=== PATIENT | male | born 1990 | race Caucasian/White ===

== ENCOUNTER 2016-11-25 13:18 | Emergency (ER) ==
[2016-11-25] MEDS ORDERED: NORCO-7.5 PO ONE (14:07)
--- NOTE | 2016-11-25 14:16 | PROVIDER DOCUMENTATION ---
HPI-Musculoskeletal Pain/Inj - GENERAL Source: patient - HX OF PRESENT ILLNESS-MUSKULOSKELTAL Quality of Pain: reports: aching Severity in ED: moderate Onset/Duration: just prior to arrival, other (Multiple falls resulting in L shoulder pain in last 1 month time period) Timing: still present Modifying Factors: worse with: movement Any recent injury?: Yes (dislocation) Locality of Occurance: Home Similar Symptoms Previously?: Yes (11/02/16 at [facility]; last week [facility]) Recently seen or treated by another doctor?: Yes ([facility]) - FALL INJURY Location of Pain/Injury: reports: upper extremity (L shoulder) Pain Radiation: reports: arm(s) Reason for Fall: reports: other (seizure) Loss of Consciousness: no loss of consciousness Injury Associated Symptoms: reports: arm pain - UPPER EXTREMITY PAIN/INJURY Extremities Pain Location: shoulder: left Context / Method of Injury: reports: fell Associated Symptoms: reports: denies symptoms <Kraen Mendieta - Last Filed: 11/25/16 14:35> <Laurel Tan - Last Filed: 11/25/16 14:42> - GENERAL Chief Complaint: Shoulder Pain Stated Complaint: shoulder pain Time Seen by Provider: 11/25/16 14:01 - HX OF PRESENT ILLNESS-MUSKULOSKELTAL Nature of Presenting Problem: 26 yo M with hx of seizures presents to ED with cc of L shoulder pain following a fall this morning in which he hit his shoulder. Pt's L shoulder was dislocated due to seizure last week. Pt was treated for dislocation at [facility], where he was given toradol for pain relief. Pt states the toradol is not working. Pt was treated in [place] ED 11/02/16 for L shoulder pain from a to a fall due to seizure. At that time, pt's x-ray indicated no acute disease. Upon arrival to ED pt is in no apparent distress. (Karen Mendieta) Review of Systems - Adult - REVIEW OF SYSTEMS - ADULT Constitutional: reports: no symptoms reported. denies: chills, fever Eyes: reports: no symptoms reported. denies: discharge, dry eyes Ears, Nose, Mouth & Throat: reports: no symptoms reported. denies: ear pain, nose pain Cardiovascular: reports: no symptoms reported. denies: chest pain, edema Respiratory: reports: no symptoms reported. denies: cough, dyspnea on exertion Gastrointestinal: reports: no symptoms reported. denies: abdominal pain, nausea Genitourinary: reports: no symptoms reported. denies: dysuria, discharge Musculoskeletal: reports: joint pain (L shoulder) Integumentary: reports: no symptoms reported. denies: hives, itching Neurological: reports: no symptoms reported. denies: ataxia, dizziness/vertigo Psychiatric: reports: no symptoms reported. denies: anxiety, alcohol/drug dependence Endocrine: reports: no symptoms reported. denies: change in skin pigment, cold intolerance Hematologic/Lymphatic: reports: no symptoms reported. denies: blood clots, easy bruising Allergic/Immunologic: reports: no symptoms reported. denies: allergic reactions , allergic rhinitis All Other Systems: Reviewed and Negative <Karen Mendieta - Last Filed: 11/25/16 14:35> Past History - Adult - PAST MEDICAL HISTORY-ADULT Review of Records: reports: Old Records Reviewed, Nursing Assessment Review, Medications Reviewed Major Childhood Illnesses: reports: denies history Genitourinary: reports: kidney stones Neurological: reports: Seizures/Epilepsy Psychiatric: reports: anxiety, depression, other (OD) Endocrine/Immune: reports: hypoglycemia Other Conditions: reports: other (hypoglycemia) - PRIOR SURGERIES/PROCEDURES Surgical/Procedure History: reports: reviewed, not pertinent, orthopedic ( extremity) - PRIOR HOSPITALIZATIONS Prior Hospitalizations: reports: none - IMMUNIZATION STATUS Childhood Immunizations: See Nurse Assessment Flu Vaccine: See Nurse Assessment - FAMILY HISTORY Family History: reviewed, not pertinent <Karen Mendieta - Last Filed: 11/25/16 14:35> Physical Exam-Injury Related - Physical Exam-Injury Related Initial Vital Signs Reviewed: Yes General Appearance: appears well, alert, no apparent distress Eyes: PERRL/EOMI, pink conjunctivae Head, Ears, Nose, Mouth & Throat: normocephalic/atraumatic, moist mucous membranes, normal ENT inspection Neck: non-tender, full range of motion, supple Respiratory: chest non-tender, lungs clear, normal breath sounds Cardiovascular: normal peripheral pulses, regular rate, rhythm Abdominal Exam: normal bowel sounds, non tender, soft Lymphatic: no adenopathy Back Exam: normal inspection, no vertebral tenderness Extremity: tenderness (L shoulder). negative: normal range of motion (L should unable to extend past 90 degrees due to pain) Integumentary: normal color, warm/dry, blanching Neurologic: grossly normal, no motor/sensory deficits Psych/Mental Status: normal mood/affect, normal thought content, normal thought process, oriented x 3 - Glascow Coma Score Best Eye Response ([place]): (4) open spontaneously Best Verbal Response ([place]): (5) oriented Best Motor Response ([place]): (6) obeys commands [place] Total: 15 <Karen Mendieta - Last Filed: 11/25/16 14:35> Progress <Karen Mendieta - Last Filed: 11/25/16 14:35> - XRAY 1 XRAY: Left XRAY Study: Shoulder Impression: Normal (NAD per radiology) <Laurel Tan - Last Filed: 11/25/16 14:42> - PLAN OF CARE/RESULTS Progress/Plan/Lab Results: Vital Signs Temp Pulse Resp BP Pulse Ox 11/25/16 13:24 98.7 F 90 18 132/73 99 phenobarbital Adverse Reaction (Unknown, Verified 11/02/16 23:27) Unknown he is not sure he had febrile seizures until he was [age] year old Clonazepam [Klonopin] 1 mg PO PRN PRN 06/28/16 Levetiracetam [Keppra] 500 mg PO BID 06/28/16 Cephalexin [Keflex] 500 mg PO TID #20 capsule 11/03/16 Hydrocodone/Acetaminophen [[place] 5-325 Tablet] 1 each PO Q4-6H PRN PRN #20 tablet 11/03/16 Ibuprofen [Motrin] 800 mg PO Q8H PRN PRN #30 tablet 11/03/16 Orders Category Date Time Status Arm Sling DIRECTED Care 11/25/16 14:40 Active SHOULDER-LEFT [RAD] Stat Exams 11/25/16 14:07 Draft Hydrocodone/APAP 7.5 mg/325 mg [[place]-7.5] Med 11/25/16 14:07 Discontinued 1 each PO NOW ONE (Laurel Tan) Procedures - SPLINTING Left Upper Extremity Pre-Procedure Neurovascular Exam: Intact Pre-Fabricated Splint: Arm Sling Applied By: ED Nurse Assisted By: ED Nurse Post Procedure Neurovascular Exam: Intact <Laurel Tan - Last Filed: 11/25/16 14:42> Departure <Karen Mendieta - Last Filed: 11/25/16 14:35> - Departure Time of Disposition Order: 14:41 Certified Medical Emergency: Emergent <Laurel Tan - Last Filed: 11/25/16 14:42> - Departure DIAGNOSIS: Left shoulder strain Qualifiers: Encounter type: initial encounter Qualified Code(s): S46.912A - Strain of unspecified muscle, fascia and tendon at shoulder and upper arm level, left arm , initial encounter Disposition: HOME 01 Condition: Stable Additional Instructions: follow up with doc ED Follow Up Instructions: You have been treated by a care provider in the Emergency Department. These instructions are being provided to you so you can have an understanding of how to care for yourself upon discharge. Upon discharge from the Emergency Department, you are responsible for making arrangements for follow-up care by a physician of your choice. Take all prescribed medications as directed. Return to the Emergency Department immediately for any new or worsening symptoms. You may call the Physician Referral phone number at [phone] to obtain a list of Physicians who are taking new patients. Prescriptions: Acetaminophen with Codeine [Tylenol with Codeine #3] 1 each PO Q4H PRN PRN #14 tablet PRN Reason: Pain Referrals: None,PCP [Primary Care Provider] - Hua Vazquez MD [STAFF PHYSICIAN] - Attestation - Scribe Verification/Attestation Scribe:: Karen Mendieta Acting as Scribe for:: Laurel Tan Scribe documention review:: This chart was documented by a scribe and accurately reflects the service the provider performed and the decisions made by the provider. - Physician/ Mid-level Attestation Patient care was provided by Mid-level provider (BOTTOM PRECIPITATOR OPERATOR/PA):: Yes Mid-level provider:: Laurel Tan Mid-level documentation review:: The Mid-level provider documentation, treatment plan and medical decision making was reviewed by the physician who agrees with all treatment and medical decision making by the MLP. <Karen Mendieta - Last Filed: 11/25/16 14:35> Physician Attestation
--- NOTE | 2016-11-25 14:39 | Diag Imaging Result Document ---
PROCEDURE NAME: SHOULDER-LEFT - 11/25/2016 PLAIN RADIOGRAPHS OF THE LEFT SHOULDER, 3 VIEWS: COMPARISON: None available. FINDINGS: There is no discrete fracture, dislocation, or intrinsic osseous lesion. The visualized joint spaces are essentially unremarkable. The surrounding soft tissues are grossly unremarkable. IMPRESSION: No evidence of acute osseous abnormality.
[2016-11-25 15:28] VITALS: BP 114/69
== END 2016-11-25 15:27 | disposition home or self-care (01) ==
LOC: P.ED 13:18
DX: S46.912A Strain of unspecified muscle, fascia and tendon at shoulder and upper arm level, left arm, initial encounter (principal); M25.512 Pain in left shoulder; R56.9 Unspecified convulsions; Z87.442 Personal history of urinary calculi; F41.9 Anxiety disorder, unspecified; F32.9 Major depressive disorder, single episode, unspecified; W19.XXXA Unspecified fall, initial encounter; Z79.899 Other long term (current) drug therapy
CPT/HCPCS: 99283

== ENCOUNTER 2017-01-29 19:23 | Emergency (ER) ==
[2017-01-29 19:28] VITALS: BP 129/72
--- NOTE | 2017-01-29 20:03 | PROVIDER DOCUMENTATION ---
HPI-EENT General <Marco Coulter - Last Filed: 01/29/17 20:02> - General Source: patient - History of Present Illness-EENT General EENT Location: reports: ear (R) Quality of Pain: reports: aching Severity: reports: mild Onset/Duration: reports: 2 days ago Timing: reports: still present Prearrival Treatment: Initiated no prearrival treatment Associated Symptoms: reports: cough Locality of Occurance: Home Similar Symptoms Previously?: No Recently seen or treated by another doctor?: No <Dalila Pereira - Last Filed: 01/29/17 21:12> - General Chief Complaint: Cold Symptoms Stated Complaint: COLD SX, N/V/D Time Seen by Provider: 01/29/17 19:31 Allergies/Adverse Reactions: Patient Allergies Allergy/AdvReac Type Severity Reaction Status Date / Time phenobarbital AdvReac Unknown Unknown Verified 01/29/17 19:43 Home Medications: Home Medication List Medication Instructions Recorded Confirmed Last Taken Type Levetiracetam [Keppra] 500 mg PO BID 06/28/16 01/29/17 01/29/17 09:00 History Alprazolam [Xanax] 1 tab PO PRN PRN MDD 4 12/27/16 01/29/17 01/29/17 18:00 History Ibuprofen [Motrin] 600 mg PO Q6H PRN PRN #20 tablet 12/27/16 01/29/17 01/29/17 12:00 Rx Acetaminophen with Codeine 1 each PO Q6H PRN PRN #14 tablet 01/04/17 01/29/17 Unknown Rx [Tylenol with Codeine #3 Tablet] Amoxicillin [Amoxil] 500 mg PO BID #10 capsule 01/29/17 Unknown Rx Guaifenesin/D-Methorphan Hb/PE 1 each PO Q6-8H PRN PRN #14 tablet 01/29/17 Unknown Rx [Deconex Dmx Tablet] Prochlorperazine Maleate 5 mg PO Q4H PRN PRN #10 tablet 01/29/17 Unknown Rx [Compazine] - History of Present Illness-EENT General Nature of Presenting Problem: 26 year old M presents to the ED with a cc of cough, chills, body aches, headache, and right ear pain with an onset of 2 days ago. (Dalila Pereira) Review of Systems - Adult - REVIEW OF SYSTEMS - ADULT Constitutional: reports: chills. denies: fever Eyes: reports: no symptoms reported Ears, Nose, Mouth & Throat: reports: ear pain. denies: throat pain Cardiovascular: denies: chest pain, palpitations Respiratory: reports: cough. denies: shortness of breath Gastrointestinal: denies: diarrhea, nausea, vomiting Genitourinary: reports: no symptoms reported Musculoskeletal: reports: muscle aches. denies: muscle weakness Integumentary: reports: no symptoms reported Neurological: reports: headache/migraines. denies: dizziness/vertigo Psychiatric: reports: no symptoms reported Endocrine: reports: no symptoms reported Hematologic/Lymphatic: reports: no symptoms reported Allergic/Immunologic: reports: no symptoms reported All Other Systems: Reviewed and Negative <Dalila Pereira - Last Filed: 01/29/17 21:12> Past History - Adult - PAST MEDICAL HISTORY-ADULT Major Childhood Illnesses: reports: denies history Cardiovascular: reports: denies history Respiratory: reports: denies history Gastrointestinal: reports: denies history Obstetrical/Gynecological: reports: denies history Genitourinary: reports: kidney stones Musculoskeletal: reports: denies history Neurological: reports: Seizures/Epilepsy Psychiatric: reports: anxiety, depression, other (OD) Endocrine/Immune: reports: Diabetes, hypoglycemia Other Conditions: reports: other (hypoglycemia) - PRIOR SURGERIES/PROCEDURES Surgical/Procedure History: reports: reviewed, not pertinent, orthopedic ( extremity) - PRIOR HOSPITALIZATIONS Prior Hospitalizations: reports: none - IMMUNIZATION STATUS Childhood Immunizations: See Nurse Assessment Flu Vaccine: See Nurse Assessment - FAMILY HISTORY Family History: reviewed, not pertinent <Marco Coulter - Last Filed: 01/29/17 20:02> - PAST MEDICAL HISTORY-ADULT Review of Records: reports: Nursing Assessment Review, Medications Reviewed Major Childhood Illnesses: reports: denies history Genitourinary: reports: kidney stones Psychiatric: reports: anxiety Endocrine/Immune: reports: hypoglycemia - PRIOR SURGERIES/PROCEDURES Surgical/Procedure History: reports: orthopedic (extremity) - IMMUNIZATION STATUS Childhood Immunizations: See Nurse Assessment Flu Vaccine: See Nurse Assessment - SOCIAL HISTORY Smoking: cigarettes, less than 1 pack/day Provider spent 3-5 mins advising pt. on dangers of tobacco.: Discussed manners to quit use, and f/u contacts for add'l counseling. Substance Use: none/never Alcohol Use Frequency: occasionally (socially) <Dalila Pereira - Last Filed: 01/29/17 21:12> Physical Exam- EENT - Physical Exam EENT Initial Vital Signs Reviewed: Yes General Appearance: appears well, alert, no apparent distress Ear Exam: right ear: TM red, left ear: auricle normal, canal normal, TM normal Throat Exam: normal mouth inspection, pharynx normal Respiratory: chest non-tender, lungs clear, normal breath sounds Cardiovascular: normal peripheral pulses, regular rate, rhythm, no edema Integumentary: normal color, normal turgor, warm/dry Psych/Mental Status: normal mood/affect, normal thought content, normal thought process, oriented x 3 <Dalila Pereira - Last Filed: 01/29/17 21:12> Progress <Marco Coulter - Last Filed: 01/29/17 20:02> <Dalila Pereira - Last Filed: 01/29/17 21:12> - PLAN OF CARE/RESULTS Progress/Plan/Lab Results: Orders Category Date Time Status DIRECT STREP Stat Lab 01/29/17 19:25 Completed INFLUENZA SCREEN A/B Stat Lab 01/29/17 19:25 Completed Tramadol [Ultram] Med 01/29/17 20:11 Discontinued 50 mg PO NOW ONE Vital Signs - 24 hr 01/29/17 19:25 Temperature 97.8 F Pulse Rate 93 H Respiratory 18 Rate Blood Pressure 129/72 O2 Sat by Pulse 100 Oximetry Pt given results and will be d/c home w/ rx to follow up with PCP. Pt verbally understood instructions. PT remained clinically stable throughout the course of the ED stay and will return if symptoms worsen. (Dalila Pereira) Departure - Departure Time of Disposition Order: 20:02 Certified Medical Emergency: Urgent <Marco Coulter - Last Filed: 01/29/17 20:02> <Dalila Pereira - Last Filed: 01/29/17 21:12> - Departure DIAGNOSIS: Otitis media Qualifiers: Otitis media type: in diseases classified elsewhere Laterality: right Qualified Code(s): H67.1 - Otitis media in diseases classified elsewhere, right ear Disposition: HOME 01 Condition: Good Additional Instructions: Take medication as prescribed. Rest and stay well hydrated. ED Follow Up Instructions: You have been treated by a care provider in the Emergency Department. These instructions are being provided to you so you can have an understanding of how to care for yourself upon discharge. Upon discharge from the Emergency Department, you are responsible for making arrangements for follow-up care by a physician of your choice. Take all prescribed medications as directed. Return to the Emergency Department immediately for any new or worsening symptoms. You may call the Physician Referral phone number at [phone] to obtain a list of Physicians who are taking new patients. Prescriptions: Amoxicillin [Amoxil] 500 mg PO BID #10 capsule Prochlorperazine Maleate [Compazine] 5 mg PO Q4H PRN PRN #10 tablet PRN Reason: Headaches Guaifenesin/D-Methorphan Hb/PE [Deconex Dmx Tablet] 1 each PO Q6-8H PRN PRN #14 tablet PRN Reason: Cough and congestion Referrals: Onofre Wiggins MD [Primary Care Provider] - Forms: Return to School/Parent Work Instructions: Otitis Media, Adult, [id number] Attestation - Physician/ SYLVIA Attestation Patient care was provided by Advanced Practice Provider:: Yes Advanced Practice Provider:: Marco Coulter Advanced Practice Provider documentation review:: The Mid-level provider documentation, treatment plan and medical decision making was reviewed by the physician who agrees with all treatment and medical decision making by the [facility]. <Marco Coulter - Last Filed: 01/29/17 20:02> - Scribe Verification/Attestation Scribe:: Dalila Pereira Acting as Scribe for:: Marco Coulter Scribe documention review:: This chart was documented by a scribe and accurately reflects the service the provider performed and the decisions made by the provider. <Dalila Pereira - Last Filed: 01/29/17 21:12> Physician Attestation - Physician Attestation I, the provider, attest to the following statement:: Marco Coulter Physician documentation Attestation:: This documentation recorded by the scribe accurately reflects the service I personally performed and the decisions made by me. <Dalila Pereira - Last Filed: 01/29/17 21:12>
[2017-01-29] MEDS ORDERED: ULTRAM PO ONE (20:11)
== END 2017-01-29 20:18 | disposition home or self-care (01) ==
LOC: ED 19:23
DX: H67.1 Otitis media in diseases classified elsewhere, right ear (principal); R05 Cough; M79.1 Myalgia; H92.01 Otalgia, right ear; R51 Headache; R68.83 Chills (without fever); Z87.442 Personal history of urinary calculi; R56.9 Unspecified convulsions; E11.9 Type 2 diabetes mellitus without complications; F41.9 Anxiety disorder, unspecified; F32.9 Major depressive disorder, single episode, unspecified; F17.210 Nicotine dependence, cigarettes, uncomplicated; Z71.6 Tobacco abuse counseling; Z79.899 Other long term (current) drug therapy
CPT/HCPCS: 87081; 87430; 87804; 99282

== ENCOUNTER 2017-02-01 23:58 | Emergency (ER) ==
[2017-02-02 00:31] LABS: URINE CULTURE NEEDED? NO; URINE SOURCE CLEAN CATCH
--- NOTE | 2017-02-02 00:44 | PROVIDER DOCUMENTATION ---
HPI-General Adult - General Source: patient - History of Present Illness -Gen Adult Nature of Presenting Problems: Pt. is 26 yom that presents with c/o right flank pain that began today. Pt. reports the pain is like it is when he has a kidney stone. Pt. also reports he was seen on 01/29/2017 and diagnosed with a migraine and sinus infection but the medications he was given for his head are not helping. Pt. reports he has been nauseated all day today also and that it hurts to urinate. Pt. denies any fever or other symptoms. Location of Pain/Injury: reports: abdomen. denies: head, face, mouth, neck, chest, upper extremity, hand(s), back, pelvis, genitalia, lower extremity, feet , upper body, lower body, generalized Pain Radiation: reports: flank (R) Quality of Pain: reports: aching. denies: burning, cramping, dull, fullness, indigestion, pressure, sharp, stabbing, tearing, throbbing, tightness Severity: reports: mild. denies: moderate, severe Onset/Duration: reports: abrupt, this morning Timing: reports: still present. denies: improving, gone now, resolved prior to arrival, intermittent, constant, changing over time, getting worse Context/Activities at Onset: reports: none. denies: recent emotional stress, recent physical stress, recent trauma history, possible bad food, cold exposure , out of country travel Modifying Factors: improves with: nothing Associated Symptoms: reports: genitourinary problems, headaches, nausea. denies : anxiety, arm pain, back/neck pain, chest pain, constipation, cough, diaphoresis, diarrhea, dizziness, EENT symptoms, fatigue, fever/chills, heartburn, joint pain, loss of appetite, malaise, muscle aches, sinus congestion /drainage, rash, seizure, shortness of breath, sensory/motor loss, pain with inspiration, swelling/mass in abdomen, syncope, vomiting, weakness, trouble walking Similar Symptoms Previously?: Yes Recently seen or treated by another doctor?: Yes <Miguel Angel Adames - Last Filed: 02/02/17 01:55> <Caridad Post - Last Filed: 02/02/17 02:14> <Ariel Rothman - Last Filed: 02/02/17 02:31> - General Chief Complaint: Flank Pain Stated Complaint: ABD PAIN, RT SIDE, FEVER Time Seen by Provider: 02/02/17 00:07 Allergies/Adverse Reactions: Patient Allergies Allergy/AdvReac Type Severity Reaction Status Date / Time phenobarbital AdvReac Unknown Unknown Verified 01/29/17 19:43 Home Medications: Home Medication List Medication Instructions Recorded Confirmed Last Taken Type Levetiracetam [Keppra] 500 mg PO BID 06/28/16 01/29/17 01/29/17 09:00 History Alprazolam [Xanax] 1 tab PO PRN PRN MDD 4 12/27/16 01/29/17 01/29/17 18:00 History Ibuprofen [Motrin] 600 mg PO Q6H PRN PRN #20 tablet 12/27/16 01/29/17 01/29/17 12:00 Rx Acetaminophen with Codeine 1 each PO Q6H PRN PRN #14 tablet 01/04/17 01/29/17 Unknown Rx [Tylenol with Codeine #3 Tablet] Amoxicillin [Amoxil] 500 mg PO BID #10 capsule 01/29/17 Unknown Rx Guaifenesin/D-Methorphan Hb/PE 1 each PO Q6-8H PRN PRN #14 tablet 01/29/17 Unknown Rx [Deconex Dmx Tablet] Prochlorperazine Maleate 5 mg PO Q4H PRN PRN #10 tablet 01/29/17 Unknown Rx [Compazine] Ondansetron [Zofran] 4 mg PO Q6H PRN PRN #20 tablet 02/02/17 Unknown Rx Tramadol [Ultram] 50 mg PO Q8HR #12 tablet 02/02/17 Unknown Rx Review of Systems - Adult - REVIEW OF SYSTEMS - ADULT Constitutional: reports: see HPI. denies: chills, fever, fatique Eyes: reports: see HPI. denies: discharge, blurred vision, double vision Ears, Nose, Mouth & Throat: reports: see HPI. denies: ear pain, hearing loss, sinus problem, nose pain, mouth/dental pain, throat pain, throat swelling Cardiovascular: reports: see HPI. denies: chest pain, irregular heart rate, orthopnea, palpitations, syncope Respiratory: reports: see HPI. denies: cough, dyspnea on exertion, pleurisy, shortness of breath, wheezing Gastrointestinal: reports: see HPI, abdominal pain, nausea. denies: hematemesis , diarrhea, difficulty swallowing Genitourinary: reports: see HPI, dysuria. denies: discharge, frequency, flank pain, hesitency, urgency Musculoskeletal: reports: see HPI. denies: bone pain, back pain, joint pain, muscle aches, neck pain Integumentary: reports: see HPI. denies: hives, itching, rash, skin thickening Neurological: reports: see HPI, headache/migraines. denies: ataxia, dizziness/ vertigo, numbness, seizure, tremors Psychiatric: reports: see HPI. denies: anxiety, depression, emotional problems , insomnia, panic attacks, suicidal thoughts <Miguel Angel Adames - Last Filed: 02/02/17 01:55> Past History - Adult - PAST MEDICAL HISTORY-ADULT Review of Records: reports: Old Records Reviewed, Nursing Assessment Review, Medications Reviewed, Social history reviewed & non-contributory. Major Childhood Illnesses: reports: denies history Cardiovascular: reports: denies history Respiratory: reports: denies history Gastrointestinal: reports: denies history Obstetrical/Gynecological: reports: denies history Genitourinary: reports: kidney stones Musculoskeletal: reports: denies history Neurological: reports: Seizures/Epilepsy Psychiatric: reports: anxiety Endocrine/Immune: reports: hypoglycemia Other Conditions: reports: other (hypoglycemia) - PRIOR SURGERIES/PROCEDURES Surgical/Procedure History: reports: orthopedic (extremity) - PRIOR HOSPITALIZATIONS Prior Hospitalizations: reports: none - IMMUNIZATION STATUS Childhood Immunizations: See Nurse Assessment Flu Vaccine: See Nurse Assessment - FAMILY HISTORY Family History: reviewed, not pertinent - SOCIAL HISTORY Smoking: cigarettes, greater than 1 pack/day Provider spent 3-5 mins advising pt. on dangers of tobacco.: Discussed the need to stop smoking. <Miguel Angel Adames - Last Filed: 02/02/17 01:55> Physical Exam-General - PHYSICAL EXAM-ADULT Initial Vital Signs Reviewed: Yes - CONSTITUTIONAL General Appearance: alert, mild distress, thin. negative: cachetic, obese, obtunded, combative - EYES Eyes: PERRL/EOMI, pink conjunctivae. negative: conjuctival exudate, scleral icterus, subconjunctival hemorrhage - HEAD, EARS, NOSE, MOUTH & THROAT HENMT: normocephalic/atraumatic, moist mucous membranes. negative: angioedema, frontal tenderness, maxillary tenderness - NECK Neck: non-tender, full range of motion, supple, normal inspection. negative: lymphadenopathy, trachial deviation, thyromegaly - RESPIRATORY Respiratory: lungs clear, normal breath sounds. negative: crackles, rales, rhonchi, stridor, wheezing - CARDIOVASCULAR Cardiovascular: normal peripheral pulses, regular rate, rhythm, no edema, no JVD , no murmur. negative: extra beats, friction rub, irregularly irregular - CHEST (BREASTS) Chest/Breast: deferred - GASTROINTESTINAL (ABDOMEN) Abdominal Exam: normal bowel sounds, non tender, soft. negative: distended, guarding, rigid, rebound, tenderness, hernia, mass - GENITOURINARY Male Genitalia: deferred Rectal Exam: deferred Hemoccult Exam: deferred - LYMPHATIC Lymphatic: no adenopathy. negative: axilla node tender, cervical node tenderness - MUSCULOSKELETAL Back Exam: normal inspection, no CVA tenderness, no vertebral tenderness. negative: ecchymosis, swelling, vertebral tenderness Extremity: normal range of motion, non-tender, normal gait, normal inspection. negative: deformity, erythema, inflammation, swelling, tenderness Peripheral Pulses: radial (R): 2+, radial (L): 2+ - SKIN Integumentary: normal color, normal turgor, warm/dry. negative: cyanosis, diaphoresis, ecchymosis, erythema, jaundice, mottled, pallor, petechiae, purpura , rash, swelling, tenderness - NEUROLOGIC Neurologic: grossly normal, no motor/sensory deficits. negative: aphasia, facial droop, focal weakness, motor weakness, sensory deficit - PSYCHIATRIC Psych/Mental Status: normal mood/affect, normal thought content, normal thought process, oriented x 3. negative: anxious, paranoid, tearful <Miguel Angel Adames - Last Filed: 02/02/17 01:55> Progress - PLAN OF CARE/RESULTS Progress/Plan/Lab Results: Discussed results and plan of care with patient. Patient agrees with plan and verbalizes understanding. Vital Signs Temp Pulse Resp BP Pulse Ox 02/02/17 00:05 97.9 F 99 H 18 135/71 100 phenobarbital Adverse Reaction (Unknown, Verified 01/29/17 19:43) Unknown he is not sure he had febrile seizures until he was [age] year old Levetiracetam [Keppra] 500 mg PO BID 06/28/16 Alprazolam [Xanax] 1 tab PO PRN PRN MDD 4 12/27/16 Ibuprofen [Motrin] 600 mg PO Q6H PRN PRN #20 tablet 12/27/16 Acetaminophen with Codeine [Tylenol with Codeine #3 Tablet] 1 each PO Q6H PRN PRN #14 tablet 01/04/17 Amoxicillin [Amoxil] 500 mg PO BID #10 capsule 01/29/17 Guaifenesin/D-Methorphan Hb/PE [Deconex Dmx Tablet] 1 each PO Q6-8H PRN PRN #14 tablet 01/29/17 Prochlorperazine Maleate [Compazine] 5 mg PO Q4H PRN PRN #10 tablet 01/29/17 I&O 01/31/17 02/01/17 02/02/17 06:59 06:59 06:59 Output Total 30 Balance -30 Laboratory 02/02/17 00:17 Urine Source CLEAN CATCH Urine Color YELLOW Urine Turbidity HAZY Urine pH 6.0 Ur Specific [place] 1.037 Urine Protein 70 A Ur Glucose (Stick) NEGATIVE Ur Ketones (Stick) 10 A Urine Blood NEGATIVE Urine Nitrite NEGATIVE Urine Bilirubin NEGATIVE Urobilinogen Dipstick 2 A Urine Leukocytes NEGATIVE Urine WBC (Auto) <10 Urine RBC (Auto) 10-20 A U Epithel Cells (Auto) <10 Urine Bacteria (Auto) NEGATIVE Orders Category Date Time Status RENAL STONE SEARCH [CT] Stat Exams 02/02/17 00:39 Taken UA NIMS W/REFLEX CULT [URINALYSIS] Stat Lab 02/02/17 00:17 Results URINE MANUAL MICROSCOPIC [URINALYSIS] Stat Lab 02/02/17 00:17 Results Ketorolac [Toradol] Med 02/02/17 01:55 Once 60 mg IM NOW ONE Ondansetron Odt [Zofran Odt] Med 02/02/17 01:55 Once 4 mg PO NOW ONE Oxycodone/APAP 5 mg/325 mg [Percocet-5] Med 02/02/17 01:55 Once 1 each PO NOW ONE Laboratory Tests 02/02/17 00:17 Urine Source CLEAN CATCH Urine Color YELLOW Urine Turbidity HAZY Urine pH 6.0 Ur Specific [place] 1.037 Urine Protein 70 A Ur Glucose (Stick) NEGATIVE Ur Ketones (Stick) 10 A Urine Blood NEGATIVE Urine Nitrite NEGATIVE Urine Bilirubin NEGATIVE Urobilinogen Dipstick 2 A Urine Leukocytes NEGATIVE Urine WBC (Auto) <10 Urine RBC (Auto) 10-20 A U Epithel Cells (Auto) <10 Urine Bacteria (Auto) NEGATIVE <Miguel Angel Adames - Last Filed: 02/02/17 01:55> - CT/MRI 1 CT Study: Abdomen, Pelvis Impression: Normal CT Results: No hydronephrosis or symptomatic urinary calculus. Right nephrolithiasis <Caridad Post - Last Filed: 02/02/17 02:14> - REASSESSMENT Reassessment #1 Time Reassessed: 02:31 Status: improving - CT/MRI 1 CT Study: Renal Stone Impression: See EMR Report (naf) <Ariel Rothman M - Paul Filed: 02/02/17 02:31> Departure - Departure Time of Disposition Order: 01:56 Certified Medical Emergency: Emergent <Miguel Angel Adames - Last Filed: 02/02/17 01:55> - Departure Time of Disposition Order: 02:15 Certified Medical Emergency: Emergent <CummingsCaridad - Last Filed: 02/02/17 02:14> - Departure Time of Disposition Order: 02:31 Certified Medical Emergency: Emergent <Ariel Rothman - Paul Filed: 02/02/17 02:31> - Departure DIAGNOSIS: Renal colic on right side Nausea and vomiting Qualifiers: Vomiting type: unspecified Vomiting Intractability: non-intractable Qualified Code(s): R11.2 - Nausea with vomiting, unspecified Disposition: HOME 01 Condition: Stable Additional Instructions: Follow up with primary care physician Take medications as directed Return to ED for any concerns or worsening of symptoms ED Follow Up Instructions: You have been treated by a care provider in the Emergency Department. These instructions are being provided to you so you can have an understanding of how to care for yourself upon discharge. Upon discharge from the Emergency Department, you are responsible for making arrangements for follow-up care by a physician of your choice. Take all prescribed medications as directed. Return to the Emergency Department immediately for any new or worsening symptoms. You may call the Physician Referral phone number at [phone] to obtain a list of Physicians who are taking new patients. Prescriptions: Tramadol [Ultram] 50 mg PO Q8HR #12 tablet Ondansetron [Zofran] 4 mg PO Q6H PRN PRN #20 tablet PRN Reason: Nausea Referrals: Onofre Wiggins MD [Primary Care Provider] - Forms: Return to School/Parent Work Instructions: Renal Colic, [id number] Attestation - Physician/ SYLVIA Attestation Patient care was provided by Advanced Practice Provider:: Yes Advanced Practice Provider:: Miguel Angel Adames Advanced Practice Provider documentation review:: The Mid-level provider documentation, treatment plan and medical decision making was reviewed by the physician who agrees with all treatment and medical decision making by the MLP. The physician spent face to face time with patient:: Yes Advanced Practice Provider documentation review:: The physician spent face to face time with this patient and agrees with all MLP documentation, treatment, and medical decision making by the MLP. See provider notes for further information. <Miguel Angel Adames - Last Filed: 02/02/17 01:55> Physician Attestation
[2017-02-02 00:59] LABS: BILIRUBIN URINE NEGATIVE (NEGATIVE); BLOOD URINE NEGATIVE (NEGATIVE); COLOR YELLOW; GLUCOSE URINE NEGATIVE (NEGATIVE); LEUKOCYTES URINE NEGATIVE (NEGATIVE); NITRITE URINE NEGATIVE (NEGATIVE); PROTEIN URINE 70 mg/dL (NEGATIVE); SP GRAVITY URINE 1.037; TURBIDITY URINE HAZY (CLEAR); UROBILINOGEN URINE 2 mg/dL (NORMAL)
[2017-02-02 01:00] LABS: URINE MICRO REVIEW NEEDED? YES
[2017-02-02 01:02] LABS: UR EPITHELIAL CELLS <10 /HPF (<10); URINE BACTERIA NEGATIVE /HPF; URINE WBC <10 /HPF (<10)
[2017-02-02] MEDS ORDERED: PERCOCET-5 PO ONE (01:55)
[2017-02-02] MEDS ORDERED: TORADOL IM ONE (01:55)
[2017-02-02] MEDS ORDERED: ZOFRAN ODT PO ONE (01:55)
[2017-02-02 02:21] LABS: URINE CASTS NONE SEEN; URINE CRYSTALS CA OXALATE PRESENT; URINE SMALL ROUND CELLS NONE SEEN
[2017-02-02 02:35] VITALS: BP 105/56
--- NOTE | 2017-02-02 09:25 | Diag Imaging Result Document ---
PROCEDURE NAME: RENAL STONE SEARCH - 02/02/2017 CT ABDOMEN AND PELVIS WITHOUT CONTRAST/RENAL STONE PROTOCOL: COMPARISON: 07/13/2016. FINDINGS: The gallbladder is contracted and is grossly unremarkable, otherwise. There is a 2 mm nonobstructing intrarenal stone on the right. There are no ureteral stones and there is no hydronephrosis. The urinary bladder is grossly unremarkable. The appendix appears normal. No focal inflammatory changes, free abdominal gas, or free fluid is identified. There is no evidence of bowel obstruction. The remainder of the solid viscera of the abdomen and pelvis and the remainder of the GI tract is essentially unremarkable. IMPRESSION: 1. Single punctate nonobstructing intrarenal stone on the right but no ureteral stones and no evidence of acute obstructive uropathy. 2. No other definite acute pathology appreciated.
== END 2017-02-02 02:34 | disposition home or self-care (01) ==
LOC: ED 23:58
DX: N23 Unspecified renal colic (principal); R11.2 Nausea with vomiting, unspecified; R10.9 Unspecified abdominal pain; R51 Headache; R11.0 Nausea; Z87.442 Personal history of urinary calculi; R56.9 Unspecified convulsions; F41.9 Anxiety disorder, unspecified; F17.210 Nicotine dependence, cigarettes, uncomplicated; Z71.6 Tobacco abuse counseling; Z79.899 Other long term (current) drug therapy
CPT/HCPCS: 74176; 81001; J1885

== ENCOUNTER 2017-02-05 16:09 | Emergency (ER) ==
--- NOTE | 2017-02-05 16:46 | PROVIDER DOCUMENTATION ---
HPI-Male Problem - General Chief Complaint: Flank Pain Stated Complaint: KIDNEY STONES Time Seen by Provider: 02/05/17 16:39 Source: patient Allergies/Adverse Reactions: Patient Allergies Allergy/AdvReac Type Severity Reaction Status Date / Time phenobarbital AdvReac Unknown Unknown Verified 02/05/17 20:50 Home Medications: Home Medication List Medication Instructions Recorded Confirmed Last Taken Type Levetiracetam [Keppra] 500 mg PO BID 06/28/16 02/05/17 02/05/17 08:00 History Alprazolam [Xanax] 1 tab PO PRN PRN MDD 4 12/27/16 02/05/17 01/29/17 18:00 History Ibuprofen [Motrin] 600 mg PO Q6H PRN PRN #20 tablet 12/27/16 02/05/17 02/05/17 15:00 Rx Acetaminophen with Codeine 1 each PO Q6H PRN PRN #14 tablet 01/04/17 02/05/17 08:00 Rx [Tylenol with Codeine #3 Tablet] Phenazopyridine HCl [Pyridium] 100 mg PO TID #6 tablet 02/05/17 Unknown Rx Tramadol HCl/Acetaminophen 1 each PO Q6H PRN #7 tablet 02/05/17 Unknown Rx [Ultracet Tablet] - History of Present Illness-Male Nature of Presenting Problem: 26 y/o WM c/o dysuria, hesitancy x 3 days. Reports seen at ED on night and dx with kidney stones. Since then he has passed 2 kidney stones, but still having pain in R low back, RLQ. States pain is better than , but now 10/10, and constant. Denies fever/chills, N/V/C/D, hematuria. States hx of kidney stones in the past. Review of Systems - Adult - REVIEW OF SYSTEMS - ADULT Constitutional: reports: no symptoms reported. denies: chills, fever Eyes: reports: no symptoms reported. denies: blurred vision, double vision Ears, Nose, Mouth & Throat: reports: no symptoms reported. denies: ear pain, nose pain Cardiovascular: reports: no symptoms reported. denies: chest pain, palpitations Respiratory: reports: no symptoms reported. denies: dyspnea on exertion, shortness of breath Gastrointestinal: reports: see HPI, abdominal pain. denies: constipation, diarrhea, nausea, vomiting Genitourinary: reports: see HPI, dysuria, flank pain, hesitency. denies: frequency, hematuria Musculoskeletal: reports: no symptoms reported. denies: joint pain, joint swelling Integumentary: reports: no symptoms reported. denies: nail changes, rash Neurological: reports: no symptoms reported. denies: numbness, paresthesia Psychiatric: reports: no symptoms reported Endocrine: reports: no symptoms reported. denies: cold intolerance, heat intolerance Hematologic/Lymphatic: reports: no symptoms reported. denies: easy bruising, prolonged bleeding Allergic/Immunologic: reports: no symptoms reported All Other Systems: Reviewed and Negative Past History - Adult - PAST MEDICAL HISTORY-ADULT Review of Records: reports: Nursing Assessment Review, Medications Reviewed Major Childhood Illnesses: reports: denies history Cardiovascular: reports: denies history Respiratory: reports: denies history Gastrointestinal: reports: denies history Obstetrical/Gynecological: reports: denies history Genitourinary: reports: kidney stones Musculoskeletal: reports: denies history Neurological: reports: Seizures/Epilepsy Psychiatric: reports: anxiety Endocrine/Immune: reports: hypoglycemia Other Conditions: reports: other (hypoglycemia) - PRIOR SURGERIES/PROCEDURES Surgical/Procedure History: reports: orthopedic (extremity) - PRIOR HOSPITALIZATIONS Prior Hospitalizations: reports: none - IMMUNIZATION STATUS Childhood Immunizations: See Nurse Assessment Flu Vaccine: See Nurse Assessment - FAMILY HISTORY Family History: reviewed, not pertinent - SOCIAL HISTORY Smoking: cigarettes, less than 1 pack/day Provider spent 3-5 mins advising pt. on dangers of tobacco.: Discussed manners to quit use, and f/u contacts for add'l counseling. Alcohol Use Frequency: never Physical Exam-General - PHYSICAL EXAM-ADULT Initial Vital Signs Reviewed: Yes - CONSTITUTIONAL General Appearance: alert, mild distress - EYES Eyes: pink conjunctivae - HEAD, EARS, NOSE, MOUTH & THROAT HENMT: normocephalic/atraumatic - NECK Neck: normal inspection - RESPIRATORY Respiratory: lungs clear, normal breath sounds. negative: crackles, rales, rhonchi, stridor, wheezing - CARDIOVASCULAR Cardiovascular: regular rate, rhythm. negative: bradycardia, tachycardia - GASTROINTESTINAL (ABDOMEN) Abdominal Exam: normal bowel sounds, soft, tenderness (suprapubic, RLQ). negative: distended, guarding, rigid, rebound, Coker's sign - MUSCULOSKELETAL Back Exam: no CVA tenderness, other (R low back) Extremity: normal gait - SKIN Integumentary: normal color, normal turgor, warm/dry - NEUROLOGIC Neurologic: negative: aphasia - PSYCHIATRIC Psych/Mental Status: normal mood/affect, normal thought content, normal thought process, oriented x 3 Progress - PLAN OF CARE/RESULTS Progress/Plan/Lab Results: Laboratory Tests 02/05/17 16:21 Urine Source CLEAN CATCH Urine Color YELLOW Urine Turbidity CLEAR Urine pH 7.5 Ur Specific [place] 1.017 Urine Protein NEGATIVE Ur Glucose (Stick) NEGATIVE Ur Ketones (Stick) NEGATIVE Urine Blood NEGATIVE Urine Nitrite NEGATIVE Urine Bilirubin NEGATIVE Urobilinogen Dipstick NORMAL Urine Leukocytes NEGATIVE Urine WBC (Auto) <10 Urine RBC (Auto) <10 U Epithel Cells (Auto) <10 Urine Bacteria (Auto) NEGATIVE Orders Category Date Time Status RENAL STONE SEARCH [CT] Stat Exams 02/05/17 17:15 Draft UA NIMS W/REFLEX CULT [URINALYSIS] Stat Lab 02/05/17 16:21 Completed Tramadol/APAP [Ultracet 37.5MG/325Mg] Med 02/05/17 20:55 Discontinued 1 each PO NOW ONE Vital Signs Temp Pulse Resp BP Pulse Ox 02/05/17 20:30 97.6 F 78 16 130/79 100 02/05/17 16:16 97.4 F L 87 18 134/77 100 phenobarbital Adverse Reaction (Unknown, Verified 02/05/17 20:50) Unknown he is not sure he had febrile seizures until he was [age] year old Levetiracetam [Keppra] 500 mg PO BID 06/28/16 Alprazolam [Xanax] 1 tab PO PRN PRN MDD 4 12/27/16 Ibuprofen [Motrin] 600 mg PO Q6H PRN PRN #20 tablet 12/27/16 Acetaminophen with Codeine [Tylenol with Codeine #3 Tablet] 1 each PO Q6H PRN PRN #14 tablet 01/04/17 Phenazopyridine HCl [Pyridium] 100 mg PO TID #6 tablet 02/05/17 Tramadol HCl/Acetaminophen [Ultracet Tablet] 1 each PO Q6H PRN #7 tablet CALCULUS OF KIDNEY (02/05/17) DYSURIA (02/05/17) HESITANCY OF MICTURITION (02/05/17) Laboratory 02/05/17 16:21 Urine Source CLEAN CATCH Urine Color YELLOW Urine Turbidity CLEAR Urine pH 7.5 Ur Specific [place] 1.017 Urine Protein NEGATIVE Ur Glucose (Stick) NEGATIVE Ur Ketones (Stick) NEGATIVE Urine Blood NEGATIVE Urine Nitrite NEGATIVE Urine Bilirubin NEGATIVE Urobilinogen Dipstick NORMAL Urine Leukocytes NEGATIVE Urine WBC (Auto) <10 Urine RBC (Auto) <10 U Epithel Cells (Auto) <10 Urine Bacteria (Auto) NEGATIVE - CT/MRI 1 CT Study: Renal Stone Impression: See EMR Report (2 mm R renal sotne. NAD. unchanged. -per Dr. Loyola) Departure - Departure Time of Disposition Order: 18:45 DIAGNOSIS: Renal colic on right side, Renal stone Disposition: HOME 01 Certified Medical Emergency: Emergent Condition: Stable Additional Instructions: Follow up with urologist for further management. Take medications as directed. Drink plenty of fluids. ED Follow Up Instructions: You have been treated by a care provider in the Emergency Department. These instructions are being provided to you so you can have an understanding of how to care for yourself upon discharge. Upon discharge from the Emergency Department, you are responsible for making arrangements for follow-up care by a physician of your choice. Take all prescribed medications as directed. Return to the Emergency Department immediately for any new or worsening symptoms. You may call the Physician Referral phone number at [phone] to obtain a list of Physicians who are taking new patients. Prescriptions: Phenazopyridine HCl [Pyridium] 100 mg PO TID #6 tablet Tramadol HCl/Acetaminophen [Ultracet Tablet] 1 each PO Q6H PRN #7 tablet PRN Reason: Pain Referrals: Onofre Wiggins MD [Primary Care Provider] - Hermelindo Jauregui MD [STAFF PHYSICIAN] - Forms: Return to School/Parent Work Instructions: Kidney Stones, [id number] Attestation - Physician/ SYLVIA Attestation Patient care was provided by Advanced Practice Provider:: Yes Advanced Practice Provider:: Neetu Lopes Advanced Practice Provider documentation review:: The Mid-level provider documentation, treatment plan and medical decision making was reviewed by the physician who agrees with all treatment and medical decision making by the MLP.
[2017-02-05 16:50] LABS: URINE CULTURE NEEDED? NO; URINE MICRO REVIEW NEEDED? NO; URINE SOURCE CLEAN CATCH
[2017-02-05 16:59] LABS: BILIRUBIN URINE NEGATIVE (NEGATIVE); BLOOD URINE NEGATIVE (NEGATIVE); COLOR YELLOW; GLUCOSE URINE NEGATIVE (NEGATIVE); LEUKOCYTES URINE NEGATIVE (NEGATIVE); NITRITE URINE NEGATIVE (NEGATIVE); PH URINE 7.5; PROTEIN URINE NEGATIVE (NEGATIVE); SP GRAVITY URINE 1.017; TURBIDITY URINE CLEAR (CLEAR); UR EPITHELIAL CELLS <10 /HPF (<10); URINE BACTERIA NEGATIVE /HPF; URINE RBC <10 /HPF (<10); URINE WBC <10 /HPF (<10); UROBILINOGEN URINE NORMAL (NORMAL)
[2017-02-05 20:34] VITALS: BP 130/79
[2017-02-05] MEDS ORDERED: ULTRACET 37.5MG/325MG PO ONE (20:55)
--- NOTE | 2017-02-06 07:21 | Diag Imaging Result Document ---
PROCEDURE NAME: RENAL STONE SEARCH - 02/05/2017 CT ABDOMEN PELVIS: COMPARISON: 02/02/2017. FINDINGS: Stable small 2 mm nonobstructing right renal stone. No hydronephrosis or hydroureter. No bowel obstruction or inflammation. IMPRESSION: 1. Right nephrolithiasis. 2. No acute disease or change from prior.
== END 2017-02-05 21:07 | disposition home or self-care (01) ==
LOC: ED 16:09
DX: N20.0 Calculus of kidney (principal); R30.0 Dysuria; R39.11 Hesitancy of micturition; M54.5 Low back pain; R10.30 Lower abdominal pain, unspecified; R10.31 Right lower quadrant pain; Z87.442 Personal history of urinary calculi; R56.9 Unspecified convulsions; F41.9 Anxiety disorder, unspecified; F17.210 Nicotine dependence, cigarettes, uncomplicated; Z71.6 Tobacco abuse counseling; Z79.899 Other long term (current) drug therapy
CPT/HCPCS: 74176; 81001